=== PATIENT | male | born 1960 | race Caucasian/White ===

== ENCOUNTER → 2019-12-08 | Outpatient (CLI) | payer OTHER ==
[~2019-12-08] MED LIST: HYDR7.5T; WARF5INJ; WARF7.5T
[2019-12-08 08:22] LABS: Basophils # (auto) 0 uL; Basophils % (auto) 0.5 % (0.0-2.0); Eosinophils # (auto) 0.2 uL; Eosinophils % (auto) 1.9 % (0.0-7.0); Hematocrit 50.9 % (41.0-53.0); Hemoglobin 17.4 g/dL (13.5-17.5); Lymphocytes # (auto) 2.9 uL; Lymphocytes % (auto) 35.5 % (10.0-50.0); Mean Corpuscular Hemoglobin 31.4 pg (28.0-32.0); Mean Corpuscular Hgb Conc. 34.3 g/dL (32.0-36.0); Mean Corpuscular Volume 91.7 fL (80.0-100.0); Monocytes # (auto) 0.3 uL; Monocytes % (auto) 3.9 % (0.0-12.0); Neutrophils # (auto) 4.8 uL; Neutrophils % (auto) 58.2 % (37.0-80.0); Platelet Count (auto) 235 10^3/uL (140-450); Red Blood Cells 5.55 10^6/uL (4.5-5.90); Red Cell Distribution Width 14.2 % (11.8-14.3); White Blood Cell 8.2 10^3/uL (4.4-10.8)
[2019-12-08 08:23] LABS: Urine Blood Negative /uL (Negative); Urine Specific Gravity 1.022 (1.001-1.035)
[2019-12-08 08:53] LABS: Calcium 8.8 mg/dL (8.5-10.1); Potassium 4.5 mmol/L (3.5-5.1)
[2019-12-08 08:59] LABS: Bilirubin, Total 0.5 mg/dL (0.2-1.0); Total Protein 7.2 g/dL (6.4-8.2)
[2019-12-11 18:05] LABS: IgE Mouse Urine <0.10 kU/L (Class 0)
== END | disposition home or self-care (01) ==
LOC: LAB 07:44
DX: Z12.5 Encounter for screening for malignant neoplasm of prostate (principal); Z79.01 Long term (current) use of anticoagulants; R79.89 Other specified abnormal findings of blood chemistry
CPT/HCPCS: 36415; 80053; 80061; 81003; 82785; 83036; 84153; 84403; 84443; 85025

== ENCOUNTER 2020-07-06 10:52 | Inpatient (IN) | payer OTHER ==
[~2020-07-06] VITALS: Ht 182.9 cm; Wt 104.5 kg
[~2020-07-06 10:52] MED LIST changes: -WARF7.5T; +WARF7.5T2
[2020-07-06 13:56] LABS: Basophils # (auto) 0.1 10 ^3/uL (0-0.2); Basophils % (auto) 1.4 % (0.0-2.0); Eosinophils # (auto) 0.5 10 ^3/uL (0-0.8); Eosinophils % (auto) 7.2 % (0.0-7.0); Hematocrit 50.5 % (41.0-53.0); Hemoglobin 17.1 g/dL (13.5-17.5); Lymphocytes % (auto) 42.1 % (10.0-50.0); Mean Corpuscular Hemoglobin 30.8 pg (28.0-32.0); Mean Corpuscular Hgb Conc. 33.9 g/dL (32.0-36.0); Mean Corpuscular Volume 90.9 fL (80.0-100.0); Monocytes # (auto) 0.4 10 ^3/uL (0-1.3); Monocytes % (auto) 5.8 % (0.0-12.0); Neutrophils # (auto) 3.1 10 ^3/uL (1.6-8.6); Neutrophils % (auto) 43.5 % (37.0-80.0); Nucleated Red Blood Cells % 0.1 %; Platelet Count (auto) 243 10^3/uL (140-450); Red Blood Cells 5.55 10^6/uL (4.5-5.90); Red Cell Distribution Width 14.1 % (11.8-14.3); White Blood Cell 7.1 10^3/uL (4.4-10.8)
[2020-07-06 14:14] LABS: Albumin 4.1 g/dL (3.4-5.0); Anion Gap 3 (5-15); Blood Urea Nitrogen 18 mg/dL (7-18); Calcium 8.7 mg/dL (8.5-10.1); Carbon Dioxide 26 mmol/L (21-32); Chloride 112 mmol/L (98-107); Glucose 95 mg/dL (74-106); Potassium 4.5 mmol/L (3.5-5.1); Sodium 141 mmol/L (136-145)
[2020-07-06 14:20] LABS: Alanine Aminotransferase 41 U/L (16-61); Alkaline Phosphatase 84 U/L (45-117); Aspartate Aminotransferase 21 U/L (15-37); BUN/Creatinine Ratio 14.4; Bilirubin, Total 0.4 mg/dL (0.2-1.0); GFR African American 76 mL/min; GFR Non-African American 63 mL/min; Total Protein 7.2 g/dL (6.4-8.2)
[2020-07-06] MEDS ORDERED: CLOPIDOGREL BISULFATE 75 MG TAB PO ONE (16:15)
[2020-07-06] MEDS ORDERED: ASPirin 81 mg TAB PO ONE (16:15)
[2020-07-06] MEDS ORDERED: HYDROcodone-ACET 10/325MG TAB PO ONE (16:15)
[2020-07-06 17:03] LABS: INR 1.92 (0.9-1.15); Partial Thromboplastin Time 38.2 sec (23.0-31.2)
[2020-07-06] MEDS ORDERED: MORPHINE SULF INJ 2 MG/ML SYRINGE 1ML IV PRN (17:15)
[2020-07-06] MEDS ORDERED: NITROGLYCERIN 0.4 MG SL TAB SL PRN (17:15)
[2020-07-06 18:19] LABS: Urine Bacteria NONE SEEN /hpf (None Seen); Urine Blood Negative /uL (Negative); Urine Specific Gravity 1.018 (1.001-1.035); Urine WBC <1 /hpf (0 - 3)
[2020-07-06 18:25] LABS: Alcohol, Urine < 3.0 mg/dL (0-10); Amphetamine Screen, Urine NEGATIVE (NEGATIVE); Barbiturate Scree,Urine NEGATIVE (NEGATIVE); Benzodiazephine Screen, Urine NEGATIVE (NEGATIVE); Cannabinoid Screen, Urine NEGATIVE (NEGATIVE); Cocaine Screen, Urine NEGATIVE (NEGATIVE); Opiate Scree,Urine POSITIVE (NEGATIVE); Phencyclidine Screen, Urine NEGATIVE (NEGATIVE)
--- NOTE | 2020-07-06 19:38 | NUR ---
Patient arrived to room 218A Patient arrived by wheelchair and ambulated into his room. The patient is A&Ox4, respirations even and non-labored with no s/s of distress at this time. The patient stated that he was leaving to go smoke a cigarette and that he had already signed and understood the [facility] smoking policy. The information systems technician had the signed paperwork in the patients chart. Patient stated that he was not having any weakness or dizziness at this time and ambulated out of the room to the elevator. Unable to obtain VS or conduct an assessment at this time until the patient returns.
--- NOTE | 2020-07-06 19:52 | NUR ---
Patient returned from smoking downstairs.
--- NOTE | 2020-07-06 20:00 | NUR ---
Assessment Patient A&Ox4, respirations even and non-labored with no s/s of distress. VS: 98.1, HR 59, RR 16, 134/70, 94%, and 5/10 hemorrhoid pain. Noted bilateral lower lobe crackles at this time. Patient denied any recent respiratory infections or coughing. Discussed POC with patient along with orientating to the room, call light, bathroom, bed controls, who verbalized understanding. Bed in lowest locked position with 2 side rails up, call light within reach, advised to call for assistance, will continue to monitor.
[2020-07-06 20:03] VITALS: BP 141/80
--- NOTE | 2020-07-06 20:51 | NUR ---
Called Mask Design Engineer Regarding patient belongings Addendum: 07/06/20 at 2051 by ELISE NUNEZ RN RN Line busy, will continue to try and contact.
--- NOTE | 2020-07-06 21:07 | NUR ---
Patient left room to go downstairs and smoke. Patient placed in non-skid socks.
[2020-07-06] MEDS ORDERED: HYDR-531 PO (21:34)
[2020-07-06] MEDS ORDERED: PREG150C PO (21:35)
[2020-07-06] MEDS ORDERED: DILT60TA27 PO (21:35)
[2020-07-06] MEDS ORDERED: BACL10TA PO (21:35)
--- NOTE | 2020-07-06 21:38 | NUR ---
Repairer Finished Metal returned call Will notify security for patient belongings to be placed in safe.
--- NOTE | 2020-07-06 21:49 | NUR ---
Security picked up patient belongings Brought to security safe.
[2020-07-06 22:00] VITALS: BP 134/70
[2020-07-06] MEDS ORDERED: ATORVASTATIN 20 MG TAB PO SCH (22:00)
[2020-07-06] MEDS: LISINOPRIL 10 MG TAB PO SCH (22:49)
--- NOTE | 2020-07-06 22:49 | NUR ---
Patient downstairs smoking
--- NOTE | 2020-07-06 23:15 | NUR ---
Patient returned from smoking
--- NOTE | 2020-07-07 02:00 | NUR ---
Patient downstairs smoking
--- NOTE | 2020-07-07 02:25 | NUR ---
Patient returned from smoking
--- NOTE | 2020-07-07 03:15 | NUR ---
Patient downstairs to smoke
--- NOTE | 2020-07-07 03:38 | NUR ---
Patient returned from smoking.
[2020-07-07] MEDS: HYDROcodone-ACET 5/325MG TAB PO PRN ×2 (03:58→14:54)
--- NOTE | 2020-07-07 04:01 | NUR ---
Pain Patient c/o generalized leg and back pain that he describes as a chronic ache. Administered [place] per EMAR. Will continue to monitor.
[2020-07-07 05:00] VITALS: BP 134/78
--- NOTE | 2020-07-07 05:24 | NUR ---
Patient downstairs to smoke
[2020-07-07 05:26] LABS: Cholesterol 176 mg/dL (< 200); HDL Cholesterol 26 mg/dL (40-59); LDL Cholesterol 126 mg/dL (< 100); Triglycerides 183 mg/dL (< 150)
--- NOTE | 2020-07-07 05:26 | NUR ---
Pain reassessed Patient ambulated downstairs to smoke without c/o pain at this time.
[2020-07-07 05:35] LABS: INR 1.99 (0.9-1.15)
--- NOTE | 2020-07-07 05:35 | NUR ---
Patient returned from smoking.
--- NOTE | 2020-07-07 07:20 | NUR ---
Opening Shift Note Assumed care of patient, awake and alert. No S/S of distress/SOB or pain reported at this time. Instructed on POC and to call for assist PRN, Call light within reach, will continue to monitor for changes Q1hr and PRN.
[2020-07-07 08:00] VITALS: BP 125/69
[2020-07-07 09:12] VITALS: BP 125/69
[2020-07-07] MEDS: LISINOPRIL 10 MG TAB PO SCH ×2 (09:53→22:57)
[2020-07-07] MEDS ORDERED: ASPirin 81 mg TAB PO SCH (10:00)
[2020-07-07 12:49] VITALS: BP 115/73
[2020-07-07 17:00] VITALS: BP 124/64
[2020-07-07] MEDS ORDERED: WARFARIN SODIUM 2.5 MG TAB PO ONE (17:00)
--- NOTE | 2020-07-07 18:05 | NUR ---
COUMADIN NOT AVAILABLE, CALLED PHARMACY SPOKE WITH MARINA (PHARMACIST), [facility]
--- NOTE | 2020-07-07 19:22 | NUR ---
Patient downstairs smoking
--- NOTE | 2020-07-07 19:45 | NUR ---
Patient returned to room
--- NOTE | 2020-07-07 19:50 | NUR ---
Opening shift note Assumed care of patient from day RNDelmy. Patient A&Ox4, respirations even and non-labored with no s/s of distress. Patient voiced his frustration with staying at the hospital and we discussed his POC. Advised patient to call for assistance or concerns. Bed in lowest locked position with 2 side rails up, call light within reach. Will continue to monitor.
--- NOTE | 2020-07-07 21:11 | NUR ---
Called to confirm patients MRI status for tomorrow Left a message.
--- NOTE | 2020-07-07 22:37 | NUR ---
Dr Mobley bedside Addendum: 07/07/20 at 2247 by ELISE NUNEZ RN RN Correction to time: bedside at [id number]
[2020-07-07 22:39] VITALS: BP 126/81
[2020-07-07] MEDS ORDERED: ATORVASTATIN 20 MG TAB PO SCH (22:45)
--- NOTE | 2020-07-07 23:28 | NUR ---
IV insertion IV access obtained, via clean sterile technique by inserting 22 gauge catheter at the left FA after 2 attempt(s). IV secured properly. No trauma to site. Patient tolerated well. IV to right hand removed per patient request due to pain. Catheter intact, pressure dressing applied. Patient tolerated well.
[2020-07-08] MEDS: HYDROcodone-ACET 5/325MG TAB PO PRN (04:41)
--- NOTE | 2020-07-08 04:50 | NUR ---
Pain Patient requested pain medication for 6/10 neck pain. Administered [place] per EMAR. Will continue to monitor.
[2020-07-08 05:19] VITALS: BP 146/78
[2020-07-08 06:08] LABS: INR 1.75 (0.9-1.15); Partial Thromboplastin Time 36.7 sec (23.0-31.2)
--- NOTE | 2020-07-08 06:55 | NUR ---
Pain reassessed Patient sleeping without s/s of distress, respirations even and non-labored.
--- NOTE | 2020-07-08 07:25 | NUR ---
Opening Shift Note Assumed care of patient, awake and alert. No S/S of distress/SOB or pain reported at this time. Instructed on POC and to call for assist PRN, Patient pending MRI of head, pt aware, Call light within reach, will continue to monitor for changes Q1hr and PRN
[2020-07-08 08:00] VITALS: BP 126/81
[2020-07-08 08:23] VITALS: BP 105/72
[2020-07-08] MEDS: LISINOPRIL 10 MG TAB PO SCH (10:08)
--- NOTE | 2020-07-08 10:34 | NUR ---
PT OFF UNIT TAKEN VIA WHEELCHAIR, TO MRI, NO DISTRESS NOTED AT THIS TIME
[2020-07-08 13:00] VITALS: BP 110/71
--- NOTE | 2020-07-08 13:25 | NUR ---
AT BEDSIDE DR OLIVAS AT BEDSIDE, DISCUSSING POC, INCLUDING DISCHARGE PLAN
[2020-07-08] MEDS ORDERED: LISI-648 PO (13:39)
[2020-07-08] MEDS ORDERED: ATOR20TA50 PO (13:39)
[2020-07-08 14:53] VITALS: BP 126/81
[2020-07-08 16:04] VITALS: BP 135/74
--- NOTE | 2020-07-08 16:46 | NUR ---
DISCHARGE Discharge instructions given as ordered. Encourage to follow up with PMD as instructed. Appointment not made to follow up with John Paul Johnston, office states thye will call pt to arrange appointment. All questions and concerns addressed. Patient verbalized understanding. Medication reconciliation form completed and copy given to patient. IV removed with catheter intact, pressure dressing applied. Telemetry unit returned to ICU. Patient taken to front lobby with all personal belongings, accompanied by staff member. No distress noted at time of departure.
[2020-07-08] MEDS ORDERED: WARFARIN SODIUM 2.5 MG TAB PO ONE (17:00)
--- NOTE | 2020-07-08 17:05 | NUR ---
EEG- ELECTROENCEPHALOGRAM COMPLETED ON 07/08/2020.
== END 2020-07-08 16:46 | disposition home or self-care (01) | DRG 69 ==
LOC: ER 10:52 → TELE-CENTR 10:53
PROVIDERS: ADMIT Hospitalist; ATTEND Hospitalist
DX: G45.9 Transient cerebral ischemic attack, unspecified (principal); M47.892 Other spondylosis, cervical region; G47.00 Insomnia, unspecified; G47.10 Hypersomnia, unspecified; E66.9 Obesity, unspecified; R00.1 Bradycardia, unspecified; G89.29 Other chronic pain; E78.5 Hyperlipidemia, unspecified; I11.9 Hypertensive heart disease without heart failure; F17.210 Nicotine dependence, cigarettes, uncomplicated; S16.1XXA Strain of muscle, fascia and tendon at neck level, initial encounter; Z68.31 Body mass index [BMI] 31.0-31.9, adult; Z79.899 Other long term (current) drug therapy; Z82.3 Family history of stroke; Z82.49 Family history of ischemic heart disease and other diseases of the circulatory system; Z83.3 Family history of diabetes mellitus; Z86.718 Personal history of other venous thrombosis and embolism; Z71.6 Tobacco abuse counseling; Y93.89 Activity, other specified; Y92.89 Other specified places as the place of occurrence of the external cause; Y99.8 Other external cause status; T46.1X5A Adverse effect of calcium-channel blockers, initial encounter
CPT/HCPCS: 36415; 70450; 70551; 80053; 80061; 80307; 81001; 83036; 84484; 85025; 85610; 85730; 93005; 93306; 93886; 95819; G0378

== ENCOUNTER 2022-07-17 09:45 | Emergency (ER) | payer OTHER ==
[~2022-07-17] VITALS: Ht 182.9 cm; Wt 102.2 kg
[~2022-07-17 09:45] MED LIST changes: +ATOR20TA50 PO; +BACL10TA PO; +HYDR-531 PO; -HYDR7.5T; +LISI-716 PO; +PREG150C PO
[2022-07-17] MEDS ORDERED: LIDOCAINE 1% HCL (LOCAL ANESTH.) INJ 20ML MDV IJ ONE (11:15)
[2022-07-17 11:43] VITALS: BP 111/64
== END 2022-07-17 12:14 | disposition home or self-care (01) ==
LOC: ER 09:45
DX: S81.012A Laceration without foreign body, left knee, initial encounter (principal); I10 Essential (primary) hypertension; F17.210 Nicotine dependence, cigarettes, uncomplicated; Z79.01 Long term (current) use of anticoagulants; Z79.899 Other long term (current) drug therapy; W26.8XXA Contact with other sharp object(s), not elsewhere classified, initial encounter; Y93.89 Activity, other specified; Y92.89 Other specified places as the place of occurrence of the external cause; Y99.8 Other external cause status
CPT/HCPCS: 12002; 73562; 99283; J2001